=== PATIENT | male | born 1945 | race Two or more races ===

== ENCOUNTER 2024-12-22 14:47 | Emergency (ER) | payer OTHER, MEDICAID, SELFPAY ==
[2024-12-22 14:47] VITALS: BMI 23.8
[2024-12-22 15:11] VITALS: BP 134/68; PULSE 67; RESP 17; TEMP 37.1; O2SAT 97
--- NOTE | 2024-12-22 15:36 | XR_ITS ---
Examination: Humerus 2 views left Technique: Humerus, AP lateral 2 views Date and time of exam: December 22, 2024, 1550 hrs. Indications: Patient fell today with injury to the left arm, left arm pain. Findings: No shoulder fracture or dislocation. Shaft of the humerus appears intact. Impression: No acute fracture.
--- NOTE | 2024-12-22 15:36 | XR_ITS ---
Examination: Shoulder,left, 3 views Technique: Shoulder AP internal rotation, AP external rotation, Y view shoulder, 3 views Exam date and time :December 22, 2024, 1515 hrs. Indications: Patient fell today with injury to the shoulder, shoulder pain. Findings: No shoulder fracture or dislocation. No AC joint separation. Mild shoulder calcific tendinitis. Impression: No shoulder fracture or dislocation.
--- NOTE | 2024-12-22 15:37 | PD.EDRME ---
Rapid Medical Screening Exam RME Arrival date/time: 12/22/24 14:47 79-year-old male presents to the emergency department today stating he had a physical and outpatient lab work which showed that his lab work was abnormal and was referred to the ER for further evaluation. Patient reports that he had a ground-level fall injuring his left shoulder and upper arm today Chief Complaint: General Adult/Misc Complain Time Seen by Provider: 12/22/24 15:00 Vital signs: Vital Signs Temperature 98.7 F 12/22/24 15:11 Pulse Rate 67 12/22/24 15:11 Respiratory Rate 17 12/22/24 15:11 Blood Pressure 134/68 H 12/22/24 15:11 Pulse Oximetry (%) 97 12/22/24 15:11 Oxygen Delivery Method Room Air 12/22/24 15:11
[2024-12-22 15:55] LABS: Basophils # (Auto) 0.0 Thou/mm3 (0.0-0.2); Basophils % (Auto) 0 % (0-2.5); Eosinophils # (Auto) 0.2 Thou/mm3 (0.0-0.5); Eosinophils % (Auto) 4 % (0-10); Hematocrit 26.1 % (41.0-53.0); Immature Granulocytes Auto 0.00 Thou/mm3 (0.00-0.00); Lymphocytes # (Auto) 1.2 Thou/mm3 (1.0-4.8); Lymphocytes % (Auto) 27 % (10-50); Mean Corpuscular HGB Conc 30.7 g/dl (31.0-37.0); Mean Corpuscular Hemoglobin 30.9 pg (25.0-35.0); Mean Corpuscular Volume 101 fL (80-100); Monocytes # (Auto) 0.3 Thou/mm3 (0.0-0.8); Monocytes % (Auto) 7 % (0-12); Neutrophils # (Auto) 2.7 Thou/mm3 (1.8-7.7); Neutrophils % (Auto) 61 % (37-80); Nucleated Red Blood Cell # 0.00 Thou/mm3 (0.00-0.00); Nucleated Red Blood Cell % 0 /100 WBC (0); Platelet Count 142 Thou/mm3 (140-440); RDW Standard Deviation 56.4 fL (35.1-43.9); Red Blood Count 2.59 Miln/mm3 (4.50-5.90); White Blood Count 4.5 Thou/mm3 (3.8-10.6)
[2024-12-22 16:01] LABS: Hemoglobin 8.0 g/dL (13.5-16.0)
[2024-12-22 16:03] LABS: Collection Type, Urine Clean Catch
[2024-12-22 16:16] LABS: Alanine Aminotransferase 13 U/L (10-49); Albumin, Serum 3.7 gm/dL (3.4-4.8); Albumin/Globulin Ratio 1.7 (1.2-2.2); Alkaline Phosphatase 78 U/L (46-116); Anion Gap 12 (7-16); Aspartate Amino Transferase 15 U/L (0-34); BUN/Creatinine Ratio 8 Ratio (12-20); Bilirubin,Total 0.4 mg/dL (0.3-1.2); Blood Urea Nitrogen 46 mg/dL (9-23); Calcium 9.6 mg/dL (8.3-10.6); Calcium (Corrected) 9.8 mg/dL (8.5-10.1); Carbon Dioxide 20.3 mMol/L (20.0-31.0); Chloride 111 mMol/L (98-107); Creatinine (Component) 5.6 mg/dL (0.6-1.3); Estimated Creatinine Clearance 9.0 mL/min (>60); Globulin 2.2 gm/dL (2.3-3.5); Glucose 122 mg/dL (74-106); INR 1.0 (0.9-1.3); Magnesium 2.4 mg/dL (1.6-2.6); Osmolality,Calculated 297 (275-295); Partial Thromboplastin Time 23.8 Seconds (22.0-36.0); Potassium 5.3 mMol/L (3.4-5.1); Prothrombin Time 11.0 Seconds (9.0-12.2); Sodium 143 mMol/L (136-145); Total Protein 5.9 gm/dL (5.7-8.2); eGFR 10 See Note
[2024-12-22 16:25] LABS: Bacteria,Urine Rare; Bilirubin,Urine Negative (Negative); Blood,Urine Negative (Negative); Clarity,Urine Clear (Clear/Hazy); Color,Urine Yellow (Lt Yel-Yel); Culture Indicated,Urine Not Indicated; Glucose, Urine 4+ (Negative); Ketones,Urine Negative (Negative); Leukocyte Esterase,Urine Negative (Negative); Nitrite,Urine Negative (Negative); PH,Urine 5.5 (5.0-7.0); Protein,Urine 1+ (Neg - Trace); RBC,Urine 1 /hpf (0-3); Specific Gravity,Urine 1.016 (1.001-1.035); Squamous Epithelial Cell,Urine < 1 /hpf (0-5); Urobilinogen,Urine Negative mg/dL (0.0-1.0); WBC,Urine 4 /hpf (0-5)
--- NOTE | 2024-12-22 18:00 | PD.EDADULT ---
ED General RME/HPI General Chief complaint: General Adult/Misc Complain Stated complaint: HIGH POTASSIUM, LABS DONE 1 WK AGO, SENT BY CLINIC Time Seen by Provider: 12/22/24 15:00 Arrival date/time: 12/22/24 14:47 RME / HPI RME / HPI narrative: 79-year-old male presents to the emergency department today stating he had a physical and outpatient lab work which showed that his lab work was abnormal and was referred to the ER for further evaluation. Patient reports that he had a ground-level fall injuring his left shoulder and upper arm today. Patient is already seen by web content developer, and they are in the process of doing hemodialysis. Patient is denying any shortness of breath. Denies any diarrhea denies any constipation denies any other complaints or medications taken prior to arrival. Related Data Allergies Allergy/AdvReac Type Severity Reaction Status Date / Time No Known Allergies Allergy Verified 12/22/24 14:52 Review of Systems Review of Systems Narrative Review of Systems: Review of system reviewed and within normal limits except mentioned in HPI ED Exam Narrative Physical exam: VITAL SIGNS: Reviewed. GENERAL APPEARANCE: Alert and interactive, follows commands, no acute distress, HEAD AND FACE: Non-traumatic. ENT: PERRL, pink conjunctivitis, eyelid no trauma, Mucous membrane moist. NECK: Supple, nontender, no nuchal rigidity. CHEST: No tenderness, no crepitus, no paradoxical movement, no retractions. LUNGS: Clear, well ventilated, symmetric, no rales, no wheezing, no ronchi, no stridor, good breath sounds bilaterally. HEART: Regular rate, regular rhythm, no murmur, no gallops. ABDOMEN: Soft, positive bowel sounds, nondistended, no guarding, nontender, no rebound, no masses, RECTAL: Deferred. GENITAL: Deferred. NEUROLOGICAL: Gross motor function intact sensory function intact, Appropriate for age. MUSCULOSKELETAL: low back nontender, full range of motion. EXTREMITIES: Left shoulder tenderness no deformity no crepitus no swelling, full range of motion. SKIN: Color pink, dry, no rash, no lacerations, no abrasions, no contusions. LYMPHATICS: Deferred. Course Quality Measures none Orders Category Date Time Status XR humerus LT MIN 2V Stat Exams 12/22/24 15:36 Completed XR shoulder LT min 2V Stat Exams 12/22/24 15:36 Completed CBC Stat Lab 12/22/24 15:42 Completed Comprehensive Metabolic Panel Stat Lab 12/22/24 15:42 Completed Mag [Magnesium] Stat Lab 12/22/24 15:42 Completed Partial Thromboplastin Time Stat Lab 12/22/24 15:42 Completed Prothrombin Time with INR Stat Lab 12/22/24 15:42 Completed UA, C/S IF [Urinalysis, C/S if Indicated] Stat Lab 12/22/24 15:55 Completed Sod Polystyrene Sulfon Susp [Kayexalate Susp] Med 12/22/24 17:59 Once 30 gm PO X1 ONE Vital Signs Vital signs: Vital Signs Temperature 98.7 F 12/22/24 15:11 Pulse Rate 67 12/22/24 15:11 Respiratory Rate 17 12/22/24 15:11 Blood Pressure 134/68 H 12/22/24 15:11 Pulse Oximetry (%) 97 12/22/24 15:11 Oxygen Delivery Method Room Air 12/22/24 15:11 Discharge Plan Plan Patient Disposition: HOME (Self Care) Discharge Disposition comment: stable Prescriptions/Referrals Referrals: Adriel Plummer [Primary Care Provider] - In 1 week Problem List Clinical Impression: Acute shoulder pain, Hyperkalemia, CKD (chronic kidney disease) Patient/Caregiver Discharge Instructions Discharge Activity: activity as tolerated Education Materials: CKD Dc Additional Instructions: Thank you for the opportunity for serving you today. You are stable for discharged . You are advised to: Follow-up with your PCP in 1 to 2 days Return to ED for worsening of symptoms Please follow-up with your web content developer also in the morning. Print Language: Albanian Stand Alone Forms: Malorie Award Info., Patient Portal Info Letter PA/MINNA Supervising Physician PA/MINNA Supervising Physician: MD Jhonathan MDM Narrative MDM hospital course: 79-year-old male presents to the emergency department today stating he had a physical and outpatient lab work which showed that his lab work was abnormal and was referred to the ER for further evaluation. Patient reports that he had a ground-level fall injuring his left shoulder and upper arm today. Patient is already seen by web content developer, and they are in the process of doing hemodialysis. Patient is denying any shortness of breath. Denies any diarrhea denies any constipation denies any other complaints or medications taken prior to arrival. Patient potassium today was noted to be 5.3, hemoglobin 8.0 hematocrit 26.1 creatinine 5.6 BUN of 46. Patient is already on the process of doing hemodialysis, seen by web content developer according to the family. Currently is not having any shortness of breath. Patient was given Kayexalate p.o. And advised to follow-up with PCP and web content developer in the morning. Patient stable for discharge home. Medication Administration(s) Medication Administration History Sodium Polystyrene Sulfonate (Sod Polystyrene Sulfon Susp 15 Gm/60 Ml Btl) 30 gm PO X1 ONE Stop: 12/22/24 18:00
[2024-12-22] MEDS: SOD POLYSTYRENE SULFON SUSP 15 GM/60 ML BTL 30 GM PO (18:21)
== END 2024-12-22 18:36 | disposition home or self-care (01) ==
PROVIDERS: Nurse Practitioner Primary Care; Emergency Provider Family Medicine; PCP Physician Assistant
DX: S49.92XA Unspecified injury of left shoulder and upper arm, initial encounter (principal); W18.30XA Fall on same level, unspecified, initial encounter; E87.5 Hyperkalemia; N18.9 Chronic kidney disease, unspecified
CPT/HCPCS: 36415; 73030; 73060; 80053; 81001; 83735; 85025; 85610; 85730; 99284; A9270